=== PATIENT | female | born 1960 | race Caucasian/White ===

== ENCOUNTER 2021-08-18 09:17 | Day surgery (SDC) | payer OTHER ==
[2021-08-16 15:27] LABS: SARS-CoV-2 Antigen Rapid Res Negative (Negative)
[2021-08-18] MEDS ORDERED: Ringers Lactate 1,000 ML IV ONE (09:28)
[2021-08-18 09:38] VITALS: O2SAT 100
[2021-08-18] MEDS ORDERED: LIDOCAINE 1% MPF 5 ML VIAL ONE (10:27)
[2021-08-18] MEDS ORDERED: propofoL 200 MG/20 ML VIAL IV ONE (10:27)
--- NOTE | 2021-08-18 10:54 | ENDO RPT ---
[address], [address] COLONOSCOPY PROCEDURE REPORT EXAM DATE: 08/18/2021 PATIENT NAME: Charlene Burks MR #: [id number] BIRTHDATE: 1960 ATTENDING: Joe Kapoor DR STATUS: outpatient BUMPER STRAIGHTENER: Brooks Adan and Fabien Jaime RN INDICATIONS: The patient is a 60 yr old Female here for a colonoscopy due to colon cancer screening PROCEDURE PERFORMED: Colonoscopy with biopsy MEDICATIONS: Per Anesthesia. ESTIMATED BLOOD LOSS: None CONSENT: The patient understands the risks and benefits of the procedure and understands that these risks include, but are not limited to: sedation, allergic reaction, infection, perforation and/or bleeding. Alternative means of evaluation and treatment include, among others: physical exam, x-rays, and/or surgical intervention. The patient elects to proceed with this endoscopic procedure. DESCRIPTION OF PROCEDURE: During intra-op preparation period all mechanical medical equipment was checked for proper function. Hand hygiene and appropriate measures for infection prevention was taken. Procedure, possible complications, alternatives including, but not limited to possibility of bleeding, perforation, tear, infection, sepsis, need for surgery, need for blood transfusion, were explained to the patient. After the risks, benefits and alternatives of the procedure were thoroughly explained, Informed consent was verified, confirmed and timeout was successfully executed by the treatment team. The patient was placed in the left lateral position. A digital rectal exam was performed and revealed internal hemorrhoids and A digital rectal exam was performed and revealed external hemorrhoids. After appropriate level of anesthesia, the scope was passed. The EC-[id number] ([id number]) endoscope was introduced through the anus and advanced to the ileocecal valve. The quality of the prep was good. The instrument was then slowly withdrawn as the colon was fully examined. Scope withdrawal time was 10 minutes. COLON FINDINGS: There was mild diverticulosis noted in the sigmoid colon with associated colonic spasm. No bleeding was noted from the diverticulosis. A diffuse patch of abnormal mucosa was found at the splenic flexure. The mucosa was congested and erythematous. A biopsy of the lesion was performed using cold forceps. Small internal and external hemorrhoids were found. Retroflexed views revealed no abnormalities. The scope was then completely withdrawn from the patient and the procedure terminated. ADVERSE EVENTS: There were no complications. IMPRESSIONS: 1. There was mild diverticulosis noted in the sigmoid colon 2. Diffuse abnormal mucosa was found at the splenic flexure; The mucosa was congested and erythematous; biopsy of the lesion was performed using cold forceps 3. Small internal and external hemorrhoids RECOMMENDATIONS: 1. await biopsy results 2. avoid NSAIDS for 2 weeks 3. fiber rich diet 4. follow-up: office 2 week(s) 5. Monitor for any evidence of rectal bleeding. 6. hemorrhoidal hygiene 7. yearly hemoccult starting in 4 years 8. yearly hemoquant 9. increase dietary water RECALL: for Colonoscopy, pending biopsy results. Joe Kapoor DR eSigned: Joe Kapoor DR 08/18/2021 10:53 AM cc: CPT CODES: ICD9 CODES: PATIENT NAME: Charlene Burks MR#: [id number]
[2021-08-18 11:36] VITALS: BP 122/63; TEMP 96.4
== END 2021-08-18 11:22 | disposition home or self-care (01) ==
LOC: PRE 09:17
PROVIDERS: ATTEND Surgery
PROC: 0DBL8ZX Excision of Transverse Colon, Via Natural or Artificial Opening Endoscopic, Diagnostic (ICD-10-PCS; principal; 2021-08-18 11:00)
DX: Z12.11 Encounter for screening for malignant neoplasm of colon (principal); Z20.822 Contact with and (suspected) exposure to COVID-19; K64.4 Residual hemorrhoidal skin tags; K64.8 Other hemorrhoids; K57.30 Diverticulosis of large intestine without perforation or abscess without bleeding
CPT/HCPCS: 36415; 88305; 87811; 45380; J2704; J7120